=== PATIENT | female | born 1940 | race Caucasian/White ===

== ENCOUNTER 2023-08-24 14:03 | Emergency (ER) | payer OTHER ==
[2023-08-24 14:32] VITALS: RESP 18; BMI 48.0
[2023-08-24] MEDS ORDERED: BACITRACIN ZINC 15 GM TUBE TOPICAL OINTMENT ONE (16:36)
[2023-08-24] MEDS ORDERED: ACETAMINOPHEN 500 MG TABLET (FP) ONE (16:37)
[2023-08-24] MEDS ORDERED: CEPHALEXIN MONOHYDRATE 500 MG CAPSULE (UD) ONE (16:37)
[2023-08-24] MEDS: ACETAMINOPHEN 500 MG TABLET (FP) PO ONE (17:24)
[2023-08-24] MEDS: BACITRACIN ZINC 15 GM TUBE TOPICAL OINTMENT TP ONE (17:24)
[2023-08-24] MEDS: CEPHALEXIN MONOHYDRATE 500 MG CAPSULE (UD) PO ONE (17:24)
[2023-08-24 17:52] VITALS: BP 115/58; PULSE 68; TEMP 97.8
== END 2023-08-24 19:27 | disposition home or self-care (01) ==
LOC: JERFT 14:03
DX: S81.812A Laceration without foreign body, left lower leg, initial encounter (principal); W22.8XXA Striking against or struck by other objects, initial encounter
CPT/HCPCS: 73590-TC-LT-FY; 99283-25